=== PATIENT | female | born 1985 | race Caucasian/White ===

== ENCOUNTER 2023-06-02 20:40 | Emergency (ER) | payer SELFPAY ==
[~2023-06-02] VITALS: Ht 165.1 cm; Wt 113.4 kg
[~2023-06-02 20:40] MED LIST: CEPH500 PO; CIPR500 PO; HYDACE5 PO; METO10 PO; MOMENI; MULVITMINE; NITR100CA PO; OXYACE5T PO; PENVK500 PO; PRENATAL PLUS1 EACH PO; PROM25 PO; RXHYDACE PO; RXOXYACE PO; RXSULTRIDS PO; SULTRIDS PO
[2023-06-02 21:18] LABS: BASOPHILS PERCENT AUTO 1 % (0-2); EOSINOPHILS ABSOLUTE AUTO 1.14 K/mm3 (0.00-0.68); EOSINOPHILS PERCENT AUTO 8 % (0-6); Hematocrit 41.2 % (33.0-51.0); IMMATURE GRAN ABSOLUTE AUTO 0.05 K/mm3 (0.00-0.10); IMMATURE GRAN PERCENT AUTO 0 % (0-1); LYMPHOCYTES ABSOLUTE AUTO 4.45 K/mm3 (0.84-5.20); LYMPHOCYTES PERCENT AUTO 32 % (21-46); MONOCYTES ABSOLUTE AUTO 0.81 K/mm3 (0.16-1.47); MONOCYTES PERCENT AUTO 6 % (4-13); Mean Corpuscular Volume 91 fL (80-100); Mean Platelet Volume 10.5 fL (9.1-12.4); NEUTROPHILS PERCENT AUTO 52 % (41-73); Platelet Count 308 K/mm3 (150-400); RDW Standard Deviation 42.9 fL (35.1-46.3); Red Blood Cell Count 4.52 M/mm3 (3.80-5.20); White Blood Cell Count 13.75 K/mm3 (4.00-11.30)
[2023-06-02 21:39] LABS: Albumin, Blood 3.6 g/dL (3.4-5.0); Albumin/Globulin Ratio 0.9 (0.8-1.8); Bilirubin, Total 0.2 mg/dL (0.1-1.0); Bun/Creatinine Ratio 15.1 (12.0-20.0); Calcium, Blood 8.8 mg/dL (8.5-10.1); Creatinine, Blood 0.73 mg/dL (0.40-1.00); Globulin, Blood 3.9 g/dL (2.2-4.0); Potassium, Blood 3.5 mmol/L (3.5-5.5); Total Protein, Blood 7.5 g/dL (6.4-8.2)
[2023-06-03 01:03] VITALS: BP 107/68
== END 2023-06-03 01:18 | disposition home or self-care (01) ==
LOC: ER 20:40
PROVIDERS: Student in an Organized Health Care Education/Training Program
DX: R06.02 Shortness of breath (principal); R06.2 Wheezing; B34.9 Viral infection, unspecified; Z20.822 Contact with and (suspected) exposure to COVID-19; Z88.5 Allergy status to narcotic agent
CPT/HCPCS: 71046; 80053; 85025; 93005; 93010; 94640; 94664; 99285-25; A9270

== ENCOUNTER 2024-04-16 22:08 | Emergency (ER) | payer SELFPAY ==
[~2024-04-16] VITALS: Ht 165.1 cm; Wt 90.7 kg
[2024-04-16 22:15] VITALS: BP 145/101
[2024-04-16] MEDS ORDERED: RX Prepack Albuterol 1 PREPACK/6.7 GM INH UD ONE (22:20)
[2024-04-16] MEDS ORDERED: ALBU90OI INH (22:22)
== END 2024-04-16 22:47 | disposition home or self-care (01) ==
LOC: ER 22:08
DX: J45.901 Unspecified asthma with (acute) exacerbation (principal); F17.200 Nicotine dependence, unspecified, uncomplicated; Z88.5 Allergy status to narcotic agent; Z79.899 Other long term (current) drug therapy
CPT/HCPCS: 99284; A9270